=== PATIENT | male | born 1965 | race Caucasian/White ===

== ENCOUNTER → 2019-09-28 14:38 | Outpatient (CLI) | payer OTHER, SELFPAY ==
--- NOTE | 2019-09-28 | DI.ECHO.S_ITS ---
[facility] +---------+ : : [address] : [place] : : : : [id number] : : : : Phone: [phone] +---------+ Echocardiogram Report + + :Name: VIJAYASREEKANTH CARTAGENA Study Date: 09/28/2019 Height: 71 in : :[facility] Weight: 198 lb : : Gender: Male BSA: 2.1 m2 : :: 1965 Age: 54 yrs BP: 142/88 mmHg: :Reason For Study: Chest Pain : : Performed By: [facility] Staff : :Referring: NANCY HARRINGTON : + + Interpretation Summary The left ventricle is normal in size, wall thickness, and systolic function without any focal wall motion abnormalities with the ejection fraction visually estimated to be 60-65%. The right ventricle is normal in size and function. Pulmonary artery pressures cannot be estimated because of the lack of a measurable TR jet velocity. Both atria are normal in size. There is mild mitral regurgitation but no other significant valvular heart disease. The patient was in normal sinus rhythm between 96-108 bpm during the study. Procedure: A two-dimensional transthoracic echocardiogram with color flow and Doppler was performed. The study quality was technically adequate. There is no prior echocardiogram noted for this patient. The patient was in normal sinus rhythm during the exam. The heart rate ranged between 96-108 bpm during the study. Left Ventricle: The left ventricle is normal in size, wall thickness, and systolic function without any focal wall motion abnormalities. The ejection fraction is estimated to be 60-65%. Diastolic function could not be accurately assessed due to tachycardia. Right Ventricle: The right ventricle is normal in size and function. Atria: Both atria are normal in size. The interatrial septum is intact with no evidence for an atrial septal defect. Mitral Valve: The mitral valve is normal in structure and function. There is mild mitral regurgitation. Aortic Valve: The aortic valve is trileaflet. The aortic valve opens well. No aortic regurgitation is present. Tricuspid Valve: The tricuspid valve is normal in structure and function. There is trace tricuspid regurgitation. Pulmonary artery pressures cannot be estimated because of the lack of a measurable TR jet velocity. Pulmonic Valve: The pulmonic valve is normal in structure and function. There is trace pulmonic regurgitation. There is no other significant valvular heart disease. Great Vessels: The aortic root is normal size. The dimensions of the ascending aorta are normal. The pulmonary artery is normal size. The inferior vena cava was not well visualized. Pericardium/ Pleura There is no pericardial effusion. There is no pleural effusion. MMode/2D Measurements & Calculations LVIDd: 5.0 cm LVOT diam: 2.4 cm LVIDs: 3.4 cm Ao root diam: 3.5 cm FS: 32.2 % Aortic Jxn: 2.6 cm EPSS: 1.1 cm IVSd: 0.98 cm LVPWd: 0.96 cm LV jones. diameter/BSA (cm/m^2): 2.4 LV sys. diameter/BSA (cm/m^2): 1.6 LA A2 area: 16.7 cm2 RA long axis: 4.2 cm LA A4 area: 14.9 cm2 RA area: 12.8 cm2 LA length (vol): 4.3 cm RA vol: 32.7 ml LA vol: 48.8 ml RA : 15.6 ml/m2 LA vol index: 23.2 ml/m2 TAPSE: 2.6 cm Doppler Measurements & Calculations Ao V2 max: 125.4 cm/sec LVOT Max Shan: 99.6 cm/sec Ao V2 mean: 103.6 cm/sec LV V1 max P.0 mmHg Ao max P.3 mmHg LV V1 VTI: 18.2 cm Ao mean P.5 mmHg MABEL(I,D): 3.4 cm2 Ao V2 VTI: 23.6 cm MABEL(V,D): 3.5 cm2 sev ratio: 0.77 MABEL indexed to BSA (cm^2/m^2): 1.6 MV E max shan: 51.9 cm/sec PA V2 max: 86.9 cm/sec MV A max shan: 91.5 cm/sec PA V2 mean: 62.3 cm/sec MV E/A: 0.57 PA mean P.7 mmHg Med Peak E' Shan: 3.9 cm/sec PA Accel Time: 0.13 sec E/E' med: 13.2 Lat Peak E' Shan: 9.4 cm/sec E/E' lat: 5.5 E/e' average: 9.4 MV dec time: 0.21 sec SV(LVOT): 79.8 ml Reading Physician:[email or web address]
== END ==
PROVIDERS: Visit Provider Nurse Practitioner Family
DX: I34.0 Nonrheumatic mitral (valve) insufficiency (principal); R07.9 Chest pain, unspecified
CPT/HCPCS: 93306